=== PATIENT | female | born 1940 | race African-American/Black ===

== ENCOUNTER → 2016-09-07 | Outpatient (CLI) | payer MEDICARE ==
[~2016-09-07] MED LIST: ALDACTONE 25MG25 M1 PO; AMLOPIDINE PO; ASPIR-LOW81 MG PO; CLOPIDOGREL PO; DIOVAN/HCT 12.51 TA1 PO; FLONASEALLERGY NS; INDERAL 20MG20 MG PO; LEVAQUIN 5500 MG/TA1 PO; LORTAB 5/500 501 TAB PO; MAXZIDE; PLAVIX 75MG TAB75 MG PO; PROAIR HFA0.09 MG/AC IH; TOPROL XL50 MG PO; TRIAMTERENE AND1 TA1 PO; TUSSIN DM CLEA120 ML PO; TYLENOL 500MG500 MG PO
== END ==
LOC: MC.RAD 15:00
DX: Z12.31 Encounter for screening mammogram for malignant neoplasm of breast (principal)

== ENCOUNTER → 2017-12-06 | Outpatient (CLI) | payer MEDICARE | LOC: MC.RAD 07:00 | DX: Z12.31 Encounter for screening mammogram for malignant neoplasm of breast (principal) ==

== ENCOUNTER 2018-10-29 19:00 | Emergency (ER) | payer MEDICARE ==
[~2018-10-29] VITALS: Ht 154.9 cm; Wt 77.3 kg
[2018-10-29 19:49] VITALS: BP 194/80; TEMP 97.6
[2018-10-29 22:03] VITALS: PULSE 89
== END 2018-10-29 22:05 | disposition home or self-care (01) ==
LOC: COL.ER 19:00
DX: S52.501A Unspecified fracture of the lower end of right radius, initial encounter for closed fracture (principal); S46.912A Strain of unspecified muscle, fascia and tendon at shoulder and upper arm level, left arm, initial encounter; I10 Essential (primary) hypertension; I25.10 Atherosclerotic heart disease of native coronary artery without angina pectoris; Z79.02 Long term (current) use of antithrombotics/antiplatelets; Z87.891 Personal history of nicotine dependence; W01.0XXA Fall on same level from slipping, tripping and stumbling without subsequent striking against object, initial encounter; Y92.410 Unspecified street and highway as the place of occurrence of the external cause; Z79.51 Long term (current) use of inhaled steroids
CPT/HCPCS: Q4050

== ENCOUNTER 2018-11-01 17:53 | Emergency (ER) | payer MEDICARE ==
[~2018-11-01] VITALS: Ht 154.9 cm; Wt 76.8 kg
[2018-11-01 17:56] VITALS: BP 154/81; TEMP 97.9
[2018-11-01 18:43] VITALS: PULSE 71
== END 2018-11-01 19:25 | disposition home or self-care (01) ==
LOC: COL.ER 17:53
DX: S52.501A Unspecified fracture of the lower end of right radius, initial encounter for closed fracture (principal); Z87.891 Personal history of nicotine dependence; W19.XXXA Unspecified fall, initial encounter; I10 Essential (primary) hypertension

== ENCOUNTER 2019-06-03 20:48 | Emergency (ER) | payer MEDICARE ==
[~2019-06-03] VITALS: Ht 157.5 cm; Wt 76.8 kg
[2019-06-03 20:59] VITALS: BP 197/75; TEMP 98.7
[2019-06-03] MEDS ORDERED: NORCO 325 MG-51 TAB PO (22:06)
[2019-06-03 22:21] VITALS: PULSE 85
== END 2019-06-03 22:22 | disposition home or self-care (01) ==
LOC: COL.ER 20:48
DX: M17.12 Unilateral primary osteoarthritis, left knee (principal); Z87.891 Personal history of nicotine dependence; Z79.02 Long term (current) use of antithrombotics/antiplatelets; Z79.51 Long term (current) use of inhaled steroids

== ENCOUNTER 2020-03-06 16:43 | Emergency (ER) | payer MEDICARE ==
[~2020-03-06] VITALS: Ht 157.5 cm; Wt 76.8 kg
[~2020-03-06 16:43] MED LIST changes: +NORCO 325 MG-51 TAB PO
[2020-03-06 16:46] VITALS: TEMP 97.8
[2020-03-06 18:04] VITALS: BP 121/71; PULSE 88
== END 2020-03-06 18:05 | disposition home or self-care (01) ==
LOC: COL.ER 16:43
DX: M25.512 Pain in left shoulder (principal); I10 Essential (primary) hypertension; Z79.02 Long term (current) use of antithrombotics/antiplatelets

== ENCOUNTER 2022-02-07 11:03 | Outpatient (CLI) | payer MEDICARE ==
[~2022-02-07] VITALS: Ht 157.6 cm; Wt 78.2 kg
[2022-02-07] MEDS ORDERED: HYZAAR 12.5 MG-1 TAB PO (12:13)
[2022-02-07] MEDS ORDERED: TIAZAC240 MG PO (12:14)
[2022-02-07] MEDS ORDERED: OSCAL 500 TAB500 MG PO (12:15)
[2022-02-07] MEDS ORDERED: VITAMIN D31000 I1 PO (12:15)
[2022-02-07] MEDS ORDERED: FOSAMAX 70MG TA70 MG PO (12:16)
[2022-02-07 12:19] VITALS: BP 170/66; PULSE 61; TEMP 97.9
[2022-02-07 12:22] LABS: BASO % 0.7 % (0.0-2.0); EOS # 0.1 K/mm3 (0.0-0.7); EOS % 1.8 % (0.0-4.0); GRAN # 2.9 K/mm3 (1.4-6.5); GRAN % 51.2 % (42.2-75.2); HEMATOCRIT 34.7 % (37.0-47.0); HEMOGLOBIN 11.5 g/dl (12.5-16.0); LYMPH # 2.2 K/mm3 (1.2-3.4); LYMPH % 38.6 % (20.0-51.0); MEAN CELL VOLUME 88 fl (80.0-100.0); MEAN CORPUSCULAR HEMOGLOBIN 29 pg (27-31); MEAN CORPUSCULAR HGB CONC 33 g/dl (33.0-37.0); MEAN PLATELET VOLUME 10.3 fl (7.4-10.4); MONO # 0.4 K/mm3 (0.1-0.6); MONO % 7.5 % (1.7-9.3); PLATELET COUNT 280 K/mm3 (130-400); RED BLOOD COUNT 3.93 M/mm3 (4.10-5.30)
[2022-02-07 12:35] LABS: CALCIUM 9.8 mg/dL (8.4-10.2); CREATININE, serum 1.12 mg/dL (0.57-1.11); POTASSIUM 4.2 mmol/L (3.5-4.5)
[2022-02-07 12:36] LABS: PROTHROMBIN TIME 11.7 SECONDS (9.7-12.8)
[2022-02-07] MEDS ORDERED: PLAVIX 75MG TAB75 MG PO (12:53)
[2022-02-07 13:15] VITALS: BP 119/65; PULSE 55
--- NOTE | 2022-02-07 13:15 | NUR ---
report from [employer], pt is awake and alert. has no c/o, VSS, takes water.
[2022-02-07 13:30] VITALS: BP 120/59; PULSE 55
[2022-02-07 13:45] VITALS: BP 129/57; PULSE 57
--- NOTE | 2022-02-07 13:45 | NUR ---
reviewed discharge inst. with pt, pt has next appt, also reviewed meds, and there is no med changes, con't taking all meds including plavix. reviewed moderate sedation precautions also. iv d'cd intact and pt up in room dressed
[2022-02-07 14:00] VITALS: BP 128/59; PULSE 56
--- NOTE | 2022-02-07 14:00 | NUR ---
pt discharged via w/c to car with daughter
== END 2022-02-07 14:00 | disposition home or self-care (01) ==
LOC: COL.RAD 11:03
PROVIDERS: Internal Medicine Cardiovascular Disease
DX: I35.0 Nonrheumatic aortic (valve) stenosis (principal)
CPT/HCPCS: J2370; J2704